=== PATIENT | female | born 1935 | race Caucasian/White ===

== ENCOUNTER 2016-08-22 09:29 | Emergency (ER) | payer MEDICARE ==
--- NOTE | 2016-08-22 09:36 | EDPRACDOC ---
- General Stated Complaint: FALL Time Seen by Provider: 08/22/16 09:34 - History of Present Illness HPI: PT FOUND ON THE FLOOR AT THE END OF THE BED. PRESENTS VIA EMS. VERY LIMITED HISTORY FROM PATIENT DUE TO DEMENTIA. PT HAS NO COMPLAINTS OF PAIN. ED Past Medical History - History Reviewed Yes Nurses notes reviewed and agree except as marked EDM Review of Systems - Review of Systems ROS Unobtainable: Yes Review of systems cannot be obtained due to the patient's medical condition - Physical Exam Constitutional: No apparent distress Oriented to: Not Oriented Last recorded Vital Signs: Oxygen Pulse Oxygen Saturation O2 Device Oxygen Flow Rate Fraction of Inspired Oxygen ( FIO2) - HEENT Head: Normal Eye Exam: Normal Oropharynx: Normal Nose: No Symptoms Reported Neck: Normal - Respiratory/Cardiovascular Respiratory: Normal - CTA Cardiovascular: Normal - GI Tenderness: Non tender - Musculoskeletal Back: Normal Extremities: Normal, Other (FULL ROM) - Integumentary Skin: Normal, Warm, Dry, Other (SMALL ABRASION RIGHT EAR) Lymphatics: Normal - Neurologic Memory Impaired: Unable to Test Motor Function: Normal Cranial Nerve: Normal Decision Time to Discharge: 09:35 - Departure Yes I personally saw and evaluated the patient. Disposition: Care Home Facility Condition: Stable Final Diagnosis: Fall at [facility] Qualifiers: Encounter type: initial encounter Qualified Code(s): W19.XXXA - Unspecified fall, initial encounter; Y92.129 - Unspecified place in [facility] as the place of occurrence of the external cause Instructions: Fall Prevention for Older Adults (ED) Referrals: None,No Provider [Primary Care Provider] - One Week
[2016-08-22 09:51] VITALS: PULSE 60; TEMP 98.4; BMI 30.1
[2016-08-22 10:05] VITALS: BP 118/63
== END 2016-08-22 10:20 | disposition short-term general hospital (02) ==
LOC: ED 09:29
DX: F03.90 Unspecified dementia, unspecified severity, without behavioral disturbance, psychotic disturbance, mood disturbance, and anxiety (principal); W19.XXXA Unspecified fall, initial encounter; Y93.9 Activity, unspecified
CPT/HCPCS: 99283